=== PATIENT | female | born 1960 | race Caucasian/White ===

== ENCOUNTER 2022-02-03 12:12 | Inpatient (IN) | payer MEDICARE ==
[2022-02-03] VITALS (51 sets, daily range): BP systolic 58–154; BP diastolic 40–102
[~2022-02-03] VITALS: Ht 162.6 cm; Wt 117.6 kg
[~2022-02-03 12:12] MED LIST: AMITRIPTYLINE H25 MG; BENADRYL 25MG C25 MG PO; BLACK COHOSH40 MG PO; CALCIUM500 M3 PO; CYMBALTA60 MG PO; LYRICA50 MG PO; NEXIUM20 M1 PO; TIZANIDINE4 MG PO; VITAMIN D3400 UNI2 PO
--- NOTE | 2022-02-03 12:27 | NUR ---
Ant BOOKERRTED VIA EMS STRETCHER TO [place] [id number] FOR EVAQL OF DIAPHORESIS, CHEST PRESSURE AND WEAKNESS AFTER WORKING OUTSIDE THIS AM
[2022-02-03 12:39] LABS: HEMATOCRIT 39.6 % (37.0-47.0); HEMOGLOBIN 12.9 g/dl (12.0-16.0); IMMATURE GRANULOCYTES 1.8 % (0.0-5.0); MEAN CELL VOLUME 89.6 fL CALC (80.0-100.0); MEAN CORPUSCULAR HGB 29.2 pG CALC (26.0-32.0); MEAN CORPUSCULAR HGB CONC 32.6 g/dL CAL (32.0-36.0); NEUT# 6.09 thou/uL (2.00-7.15); RED BLOOD COUNT 4.42 mill/uL (4.20-5.60); RED CELL DISTRI WIDTH 13.6 % (11.5-15.5)
--- NOTE | 2022-02-03 12:44 | NUR ---
PATIENT STATED WHEN PRIOR TO ARRIVAL, SHE HAD CHEST TIGHTNESS 5/10. PATIENT STATED IT IS 2/10 AT THIS TIME. REPORTED 81/[address] BERNARD. NO NEW ORDERS AT THIS TIME
[2022-02-03 13:07] LABS: ALBUMIN 3.9 g/dL (3.2-5.0); ALKALINE PHOSPHATASE 86 u/l (38-126); ANION GAP 21 (6-22 (CALC)); BILIRUBIN, TOTAL 0.7 mg/dL (0.0-1.4); BUN 17 mg/dL (7-17); BUN/CREATININE RATIO 16 (12-20 (CALC)); CARBON DIOXIDE 15 mmol/l (22-30); CHLORIDE 103 mmol/l (95-108); CREATININE 1.1 mg/dL (0.5-1.0); GFR FOR AFR.AMER. > 60 ML/MIN (>=60 (CALC)); GFR OTHER RACES 51 ML/MIN (>=60 (CALC)); POTASSIUM 3.7 mmol/l (3.5-5.1); SGOT/AST 28 u/l (14-36); SODIUM 135 mmol/l (137-146); TOTAL PROTEIN 6.6 g/dL (6.3-8.2)
--- NOTE | 2022-02-03 13:11 | NUR ---
PERFORMING CENTRAL LINE.
--- NOTE | 2022-02-03 13:17 | NUR ---
AT BEDSIDE FOR CENTRAL LINE PLACEMENT, PATIENT HAD NAUSEA AND HYPOTENSION DURING PROCEDURE. PATIENT GIVEN TWO PUSHED OF PHENYLEPHINE 2L EACH WITH A CONCENTRAION OF 10 ML OF PHENYLEPHINE IN 100 ML OF NS. PUSHED GIVE AT 1307 AND 1314. PATIENT ALERT AND ORIENTED AT THIS TIME.
--- NOTE | 2022-02-03 13:24 | NUR ---
DR. BERNARD ORDERED 3 LITERS OF LACTATED RINGERS. DR. BERNARD STATED TO START LEVOPHED IF NEEDED. BP STABLE AT THIS TIME. LACTATED RINGERS STARTED.
[2022-02-03 13:41] LABS: URINE BILIRUBIN - DIPSTICK NEGATIVE (NEGATIVE); URINE COLOR YELLOW; URINE GLUCOSE - DIPSTICK 100 mg/dL (NEGATIVE); URINE KETONE NEGATIVE (NEGATIVE); URINE LEUK ESTERASE NEGATIVE (NEGATIVE); URINE PH 6.5 (4.5-8.0); URINE PROTEIN - DIPSTICK 100 mg/dL (NEG-TRACE); URINE UROBILINOGEN - DIPSTICK 0.2 E.U./dL (0.2)
[2022-02-03 13:44] LABS: URINE NITRITE - DIPSTICK NEGATIVE (Negative)
[2022-02-03 13:53] LABS: URINE BLOOD DIPSTICK NEGATIVE (NEGATIVE); URINE RBC 0-2 RBC/hpf (0-5); URINE WBC 0-2 WBC/hpf (0-5)
[2022-02-03 13:54] LABS: URINE EPITHELIAL CELLS RARE EPI/hpf (0-FEW); URINE HYALINE CAST FEW lpf (NONE-RARE)
--- NOTE | 2022-02-03 14:40 | NUR ---
PATIENT TRANSPORTED TO CT SCAN VIA STRETCHER BY OUTSOLE PARAFFINER
--- NOTE | 2022-02-03 17:05 | NUR ---
REASSESSED. NAD. VITALS STABLE. CALL LIGHT IN REACH.
--- NOTE | 2022-02-03 18:12 | NUR ---
PATIENT TRANSFERRED VIA STRETCHER AND ON MONITOR AND OXYGEN 2L/MIN VIA NC. VITALS STABLE. REPORT GIVEN TO IVETT HANSEN. MEDICATIONS BAGS OF LEVOPHED AND SANIYA GIVEN TO IVETT HANSEN JUST IN CASE THEY NEED TO START THEM. NOTIFIED IVETT HANSEN WE DID NOT START LEVOPHED OR SANIYA DUE TO PATIENT BP BEING STABLE AFTER THE LACTATED RINGERS.
[2022-02-03 18:25] LABS: HEMATOCRIT 33.5 % (37.0-47.0); HEMOGLOBIN 10.8 g/dl (12.0-16.0)
--- NOTE | 2022-02-03 19:51 | NUR ---
PATIENT RESTING IN BED AT THIS TIME. KAVITA IS ALERT AND ORIENTED X 3 AND STATES HER CURRENT PAIN LEVEL OUT OF 0-10 IS ONLY A "3" AND IS NOT REQUESTING ANY PIAN MEDICATIONS AT THIS TIME. PATIENT PRESENTS WIHT A PURWICK AT THIS TIME AND URINE IS YELLOW AND CLEAR. PATIENT PRESENTS WITH RIGHT TRIPLE LUMEN IJ. PATIENT ALSO HAS RIGHT AC#18 THAT IS SALINE RAMONA. PATIENT LUNG HILARIO ARE CLEAR IN ALL HILARIO AND BOWEL SOUNDS ARE PRESENT IN ALL FOUR QUADRANTS AT THIS TIME. KAVITA STATES THAT SHE HAD A BOWEL MOVEMENT THIS AM AND IT WAS "NORMAL" FOR HER. SIDERAILS ARE UP CALL LIGHT IS WITHIN REACH. CARDICA MONITOR READING SINUS TACH AT 104. WILL CONTINUE TO MONITOR.
--- NOTE | 2022-02-03 22:00 | NUR ---
DR. MONAE IN TO SEE PATIENT AT THIS TIME. DIRECTOR ENERGY READING SINUS TACH AT 103 BP AT THIS TIME IS 114/79 SPO2 IS 90% PATIENT HAS CPAP MASK IN PLACE. DENIES ANY NEEDS SIDERAILS ARE UP CALL LIGHT IS WITHIN REACH.
[2022-02-04] VITALS (10 sets, daily range): BP systolic 104–131; BP diastolic 66–86
--- NOTE | 2022-02-04 00:02 | NUR ---
PATIENT LAYING IN BED AT THIS TIME. PATIENT STATES HER PAIN IN LOWER BACK IS A 4-5 AND PATIENT WAS GIVEN LYRICA 150MG AT THIS TIME PER SCHEDULE MED. PATIENT REMAINS IN BED WIHT CPAP ON AND SPO2 IS CURRENTLY 91%. PATIENT BP IS CURRENTLY 122/79 PATIENT RIGHT IJ REMAINS INTACT AND FLUSHES WIHTOUT ISSUE AND BLOOD RETURNED IN ALL LINES. LABS DRAWN AT THIS TIME FOR H&H AND SENT TO LAB. SIDERAILS ARE UP CALL LIGHT IS WITHIN REACH AND PURWICK EMPTIED AT THIS TIME AND 550 CC CALCULATED. WILL CONTINUE TO MONITOR.
[2022-02-04 00:09] LABS: HEMATOCRIT 30.1 % (37.0-47.0); HEMOGLOBIN 9.9 g/dl (12.0-16.0)
--- NOTE | 2022-02-04 02:03 | NUR ---
PATIENT IS RESTING IN BED AT THIS TIME. MAIL WEIGHER READING SINUS TACH AND HR OF 103, BP IS CURRENTLY 106/70 CPAP REMAINS ON AND SPO2 IS CURRENTLY 90%. SIDERAILS ARE UP CALL LIGHT IS WITHIN REACH.
--- NOTE | 2022-02-04 03:57 | NUR ---
PATIENT RESEING IN BED AT THIS TIME WITH EYES CLOSED. RESPIRATIONS ARE EASY AND UNLABORED AT THIS TIME. PATIENT IS ON CPAP AT THIS TIME. SPO2 IS CURRENTLY 90% AND BP AT THIS TIME IS 106/70. PATIENTS SIDERAILS ARE UP X 2 AND CALL LIGHT IS WIHTIN REACH.
--- NOTE | 2022-02-04 08:00 | NUR ---
PT SEEN AWAKE, ALERT, ORIENTED X 3. LUNGS CLEAR, 2 LPM NC. ABDOMEN REMAINS TENDER, SLIGHTLY MORE THAN YESTERDAY. DR MONAE IN TO SEE PT. TO RECHECK H&H AT NOON.
[2022-02-04 10:17] LABS: HEMOGLOBIN 9.4 g/dl (12.0-16.0)
--- NOTE | 2022-02-04 11:06 | NUR ---
PT SEEN AT REST IN THE BED, NO DISTRESS.
[2022-02-04 12:23] LABS: HEMATOCRIT 27.2 % (37.0-47.0); HEMOGLOBIN 8.8 g/dl (12.0-16.0)
--- NOTE | 2022-02-04 14:34 | NUR ---
PT OOB INTO CHAIR AT THIS TIME. SHE WAS ABLE TO WASH UP THERE. LINENS CHANGED. NO REPORT OF PAIN.
--- NOTE | 2022-02-04 16:59 | NUR ---
PT CONTINUES BEFORE, HR STILL ST IN THE 110-120 RANGE. NO COMPLAINT OF ABDOMINAL PAIN.
[2022-02-04 18:13] LABS: HEMOGLOBIN 8.7 g/dl (12.0-16.0)
--- NOTE | 2022-02-04 19:50 | NUR ---
PATIENT LAYING IN BED AT THIS TIME ALERT AND ORIENTED X 3. TELEVISION AND RADIO REPAIRER DONE AT THIS TIME. PATIENT DENEIS ANY MAJOR PAIN BUT DOES STATE SHE HAS AN ONGOING PIAN IN LOWER BACK THAT IS A "2" OUT OF THE 0-10 PAIN SCALE AT THIS TIME AND IS NOT REQUESTING ANY PAIN MANAGEMENT. PATIENT LUNG HILARIO ARE CLEAR IN ALL FOUR LUNG HILARIO BUT KAVITA IS CURRENTLY ON 2 LITERS OF 02 FOR STATED SHORTNESS OF BREATH AND SPO2 IS CURRENTLY 92%. GENETICS NURSE SHOWING SINUS TACHY AND HR OF 114 AND BP IS CURRENTLY 131/85. TEMP AT THIS TIME IS 98.5. PATIENT PRESENTS WITHOUT ANY EDEMA AND BOWEL SOUNDS ARE PRESENT IN ALL FOUR QUADS. PATIENT VOIDED 450 MLS OF CLEAR YELLOW URINE AND WAS ASSISTED BACK TO BED. SIDERAILS ARE UP CALL LIGHT IS WITHIN REACH WILL CONTINUE TO MONITOR.
--- NOTE | 2022-02-04 21:54 | NUR ---
PATIENT RESTING AT THIS TIME. SIDERAILS ARE UP X 2 CALL LIGHT IS WITHIN REACH. COST AND SALES RECORD SUPERVISOR READING ST AT HR OF 115 WILL CONTINUE TO MONITOR.
--- NOTE | 2022-02-04 23:47 | NUR ---
PATIENT LAYING IN BED AT THIS TIME WITH EYES CLOSED AND 02 ON 2 LITERS AT THIS TME AND SPO2 IS CURRENTLY 94%. RESPIRATIONS ARE EASY AND UNLABORED. BP IS CURRENTLY 131/81 SIDERAILS ARE UP CALL LIGHT IS WITHIN REACH. PATIENT NOT WEARING CPAP AT THIS TIME. WHILE WEARING CPAP SPO2 WAS SHOWING BELOW 89% PATIENT PLACED BACK ON 2L AND SPO2 MAINTAINS ABOVE 90%.
[2022-02-05] VITALS (12 sets, daily range): BP systolic 113–133; BP diastolic 66–85
--- NOTE | 2022-02-05 02:15 | NUR ---
PATIENT RESTING IN BED AT THIS TIME CHANEL ANY NEEDS SIDERAILS ARE UP CALL LIGHT WITHIN REACH.
--- NOTE | 2022-02-05 04:05 | NUR ---
PATIENT RESTING IN BED O2 REMAINS ON AT 2L AND SPO2 IS CURRENTLY 92 % BP IS 128/85 AND TELEVISION SPECIALIST READING ST AT HR OF 108. SIDERAILS ARE UP TRIPLE LUMEN LINES FLUSHED SIDERAILS ARE UP CALL LIGHT IS WITHIN REACH.
[2022-02-05 04:22] LABS: HEMATOCRIT 24.7 % (37.0-47.0); MEAN CELL VOLUME 92.2 fL CALC (80.0-100.0); MEAN CORPUSCULAR HGB 29.9 pG CALC (26.0-32.0); MEAN CORPUSCULAR HGB CONC 32.4 g/dL CAL (32.0-36.0); NEUT# 4.88 thou/uL (2.00-7.15); RED BLOOD COUNT 2.68 mill/uL (4.20-5.60); RED CELL DISTRI WIDTH 14.1 % (11.5-15.5)
[2022-02-05 04:31] LABS: BUN 10 mg/dL (7-17); BUN/CREATININE RATIO 12 (12-20 (CALC)); CHLORIDE 104 mmol/l (95-108); CREATININE 0.8 mg/dL (0.5-1.0); GFR FOR AFR.AMER. > 60 ML/MIN (>=60 (CALC)); GFR OTHER RACES > 60 ML/MIN (>=60 (CALC)); POTASSIUM 4.1 mmol/l (3.5-5.1); SODIUM 137 mmol/l (137-146)
[2022-02-05 04:36] LABS: ANION GAP 9 (6-22 (CALC)); CARBON DIOXIDE 28 mmol/l (22-30)
--- NOTE | 2022-02-05 06:00 | NUR ---
PATIENT REMAINS RESTING IN BED AT THIS TIME MONITOR READING ST AND HR IS 107 SIDERAILD ARE UP CALL LIGHT WITHIN REACH.
--- NOTE | 2022-02-05 11:45 | NUR ---
RECIEVED REPORT FROM TYRONE ROOT.
--- NOTE | 2022-02-05 13:03 | NUR ---
JONG MONAE. NEW ORDERS WILL BE PLACED.
--- NOTE | 2022-02-05 16:00 | NUR ---
PATIENT RESTING IN BED.
--- NOTE | 2022-02-05 18:00 | NUR ---
PATIENT EATING DINNER.
[2022-02-05 18:02] LABS: HEMATOCRIT 25.5 % (37.0-47.0); HEMOGLOBIN 8.3 g/dl (12.0-16.0)
--- NOTE | 2022-02-05 19:34 | NUR ---
PATIENT RESTING IN BED AT THIS TIME. DENIES ANY PAIN ON NEEDS AT THIS TIME CRABBING MACHINE OPERATOR DONE SEE INTERVENTIONS. PATIENT REMAINS ON 02 AT 2L AND HR IS 117 SINUS TACK LUNG HILARIO ARE CLEAR. SIDERAILS ARE UP CALL LIGHT IS WITHIN REACH. KAVITA HARMONY IS FLUSHING WITHOUT RESISTANCE AT THIS TIME. WILL CONTINUE TO MONITOR.
--- NOTE | 2022-02-05 22:00 | NUR ---
PATIENT RESTING COMFORATABLE NO COMPLAINTS HEART MONITOR READING ST AND HR OF 120 SIDERAILS ARE UP CALL LIGHT WITHIN REACH 02 ON 2 LITERS AND SPO2 IS CURRENTLY 90%.
--- NOTE | 2022-02-05 23:47 | NUR ---
PATIENT RESTING IN BED AT THIS TIME JAVA DEVELOPER READING SINUS THACKY AT 117 BP IS CURRENTLY 115/67 O2 REMAINS ON AND SPO2 IS 90% SIDERAILS ARE UP CALL LIGHT NEAR.
[2022-02-06] VITALS (8 sets, daily range): BP systolic 110–149; BP diastolic 59–84
--- NOTE | 2022-02-06 01:51 | NUR ---
PATIENT IN BED RESTING WIHT EYES CLOSED RESPIRATION EASY AND UNLABORED AT THIS TIME SPO2 IS 94% ON 2L OF O2 VIA NASAL CANULA. SIDERAILD ARE UP CALL LIGHT IS WITHIN REACH. CONCERT PROMOTER SHOWS ST AND HR OF 114 WILL CONTINUE TO MONITOR.
--- NOTE | 2022-02-06 04:01 | NUR ---
PATIENT RESTING IN BED AT THIS TIME. CRITICAL CARE UNIT MANAGER SHOWING HR OF 111 ST. PATIENT DENIES ANY NEEDS. PATIENT REMAINS ON 3L OF 02 AT THIS TIME AND SPO2 IS 96% SIDERAILS ARE UP CALL LIGHT IS WITHIN REACH.
[2022-02-06 05:15] LABS: HEMATOCRIT 22.6 % (37.0-47.0); HEMOGLOBIN 7.2 g/dl (12.0-16.0)
--- NOTE | 2022-02-06 05:56 | NUR ---
PATIENT RESTING IN BED AT THIS TIME. PRICK STITCHER IS READING SINUS TACHY AT 113. SIDERAILS ARE UP CALL LIGHT IS WITHIN REACH PATIENT RESTING AT THIS TIME.
--- NOTE | 2022-02-06 06:13 | NUR ---
DR. MONAE NOTIFED OF PATINETS HBG OF 7.2 AND HEMATOCRIT IS 22.6.
[2022-02-06 08:11] LABS: HEMATOCRIT 24.5 % (37.0-47.0); HEMOGLOBIN 7.8 g/dl (12.0-16.0); MEAN CELL VOLUME 93.5 fL CALC (80.0-100.0); MEAN CORPUSCULAR HGB 29.8 pG CALC (26.0-32.0); MEAN CORPUSCULAR HGB CONC 31.8 g/dL CAL (32.0-36.0); RED BLOOD COUNT 2.62 mill/uL (4.20-5.60); RED CELL DISTRI WIDTH 14.2 % (11.5-15.5)
--- NOTE | 2022-02-06 08:56 | NUR ---
R'CD REPORT FROM IVETT ESTRADA. PT IS A&OX4. PT IS IN NAD. PT HAS 2LNC IN PLACE. PT VSS. PT FOLLOWS COMMANDS AND HAS CALL LIGHT NEARBY. PT IS PLACED ON FALL PRECAUTIONS FOR SAFETY. PT HAS BEEN INFORMED OF POC. WILL CONTINUE TO MONITOR. SPOKE TO PHYS, STAT CT PLACED.
--- NOTE | 2022-02-06 09:15 | NUR ---
PT WAS TAKEN DOWN TO CT VIA W/C.
--- NOTE | 2022-02-06 09:30 | NUR ---
PT RETURNED AND IN BED. PT HAS NO C/O AT THIS TIME. PT HAS CALL LIGHT NEAR.
--- NOTE | 2022-02-06 12:00 | NUR ---
PT HAS NO CHANGE TO ASSESSMENT. PT HAS NO COMPLAINTS AT THIS TIME. PT HAS CALL LIGHT NEAR.
--- NOTE | 2022-02-06 12:54 | NUR ---
CALL WAS MADE TO PHYS., ORDERS R'CD TO REMOVE FROM TELE MONITORING AND OK TO TRANSFER TO MED/SURG WHEN A BED IS AVAILABLE. PT HAS LUNCH TRAY AT BEDSIDE.
--- NOTE | 2022-02-06 16:51 | NUR ---
PT IS SITTING UP IN BED AWAKE, PT HAS NO CHANGE TO ASSESSMENT. PT HAS CALL LIGT NEAR AND WILL CALL IF IN NEED.
[2022-02-06 18:01] LABS: HEMATOCRIT 26.4 % (37.0-47.0); HEMOGLOBIN 8.4 g/dl (12.0-16.0)
--- NOTE | 2022-02-06 18:17 | NUR ---
PT IS SITTING UP OOB IN CHAIR WITH DINNER TRAY, PT HAS CALL LIGHT NEAR AND HAS NO CHANGE TO ASSESSMENT.
--- NOTE | 2022-02-06 19:00 | NUR ---
PATIENT SITTING UP IN CHAIR AT THIS TIME ALERT AND ORIENTED AT X 3. VITAL SIGNS TAKEN SEE INTERVENTIONS. PATIENT DENIES ANY PAIN AT THIS TIME. RIGHT AC IV REMOVED DUE TO BEING DISLODGED. SHELLFISH MANAGER HAS BEEN DC'D AT THIS TIME. LUNG HILARIO ARE CLEAR PATIENT HAD MODERATE BOWEL MOVEMENT BROWN IN COLOR. PATIENT STATED "I FEEL SO MUCH BETTER AND HOPE TO GO HOME IN THE MORNING". SIDERAILS ARE UP CALL LIGHT IS WITHIN REACH.
--- NOTE | 2022-02-06 21:59 | NUR ---
PATIENT RESTING IN BED AT THIS TIME. DENIES ANY NEEDS CURRENTLY SIDERAILS ARE UP X 3 CALL LIGHT WITHIN REACH.
--- NOTE | 2022-02-06 23:53 | NUR ---
PATIENT RESTING IN BED AT THIS TIME. VS TAKEN SEE INTERVENTIONS. RESPIERATIONS ARE EASY AND UNLABORED AND SPO2 IS 93% AT THIS TIME. SIDERAILS ARE UP X 2 CALL LIGHT IS WITHIN REACH.
--- NOTE | 2022-02-07 02:00 | NUR ---
PATIENT RESTING WITH EYES CLOSED RESPIRATIONS EASY AND UNLABORED SIDERAILS UP CALL LIGHT WITHIN REACH. WILL CONTINUE TO MONITOR.
--- NOTE | 2022-02-07 04:09 | NUR ---
PATIENT RESTING IN BED WITH EYES CLOSED AT THIS TIME. RESPIRATIONS EASY AND UNLABLORED. SIDERAILS ARE UP CALL LIGHT WITHIN REACH.
--- NOTE | 2022-02-07 05:45 | NUR ---
PATIENT REMAINS IN BED WEARING CPAP AT THIS TIME SIDERAILS ARE UP X 2 CALL LIGHT IS WITHIN REACH. WILL CONTINUE TO MONITOR.
== END 2022-02-07 09:15 | disposition home or self-care (01) | DRG 815 ==
LOC: ED 12:12 → ED-I 16:20 → ED 16:38 → ICU 16:39
PROVIDERS: Family Medicine; ADMIT Surgery; ATTEND Surgery
PROC: 05HM33Z Insertion of Infusion Device into Right Internal Jugular Vein, Percutaneous Approach (ICD-10-PCS; principal; 2022-02-03)
DX: S36.039A Unspecified laceration of spleen, initial encounter (principal); E87.20 Acidosis, unspecified; I95.9 Hypotension, unspecified; D64.9 Anemia, unspecified; F32.A Depression, unspecified; G60.0 Hereditary motor and sensory neuropathy; K21.9 Gastro-esophageal reflux disease without esophagitis; X58.XXXA Exposure to other specified factors, initial encounter; Z53.1 Procedure and treatment not carried out because of patient's decision for reasons of belief and group pressure; Z85.528 Personal history of other malignant neoplasm of kidney; Z20.822 Contact with and (suspected) exposure to COVID-19
CPT/HCPCS: Q9967; S0164

== ENCOUNTER 2022-02-11 13:41 | Emergency (ER) | payer MEDICARE ==
[2022-02-11] VITALS (18 sets, daily range): BP systolic 109–155; BP diastolic 57–96
[~2022-02-11] VITALS: Ht 162.6 cm; Wt 113.0 kg
[2022-02-11] MEDS ORDERED: LYRICA50 MG PO (14:21)
[2022-02-11 14:28] LABS: HEMATOCRIT 27.5 % (37.0-47.0); HEMOGLOBIN 8.7 g/dl (12.0-16.0); IMMATURE GRANULOCYTES 4.2 % (0.0-5.0); MEAN CELL VOLUME 95.5 fL CALC (80.0-100.0); MEAN CORPUSCULAR HGB 30.2 pG CALC (26.0-32.0); MEAN CORPUSCULAR HGB CONC 31.6 g/dL CAL (32.0-36.0); NEUT# 3.84 thou/uL (2.00-7.15); RED BLOOD COUNT 2.88 mill/uL (4.20-5.60); RED CELL DISTRI WIDTH 16.1 % (11.5-15.5)
[2022-02-11 14:38] LABS: ALBUMIN 3.7 g/dL (3.2-5.0); ALKALINE PHOSPHATASE 79 u/l (38-126); ANION GAP 13 (6-22 (CALC)); BUN 13 mg/dL (7-17); BUN/CREATININE RATIO 15 (12-20 (CALC)); CARBON DIOXIDE 26 mmol/l (22-30); CHLORIDE 105 mmol/l (95-108); CREATININE 0.8 mg/dL (0.5-1.0); GFR FOR AFR.AMER. > 60 ML/MIN (>=60 (CALC)); GFR OTHER RACES > 60 ML/MIN (>=60 (CALC)); LIPASE 87 u/l (23-300); POTASSIUM 4.1 mmol/l (3.5-5.1); SGOT/AST 33 u/l (14-36); SODIUM 140 mmol/l (137-146); TOTAL PROTEIN 6.3 g/dL (6.3-8.2)
== END 2022-02-11 18:40 | disposition home or self-care (01) ==
LOC: ED 13:41
PROVIDERS: Family Medicine
DX: R07.9 Chest pain, unspecified (principal); G60.0 Hereditary motor and sensory neuropathy; F32.A Depression, unspecified
CPT/HCPCS: Q9967

== ENCOUNTER → 2024-01-30 | Day surgery (SDC) | payer MEDICARE ==
[~2024-01-30] MED LIST changes: +CALCIUM 1200 PO; +ELAVIL25 M1 PO; +FAMOTIDINE 10MG/ML 2ML SDV IV ONE; +INDERAL10 M1 PO; +LACTATED RINGER'S 1,000 ML IV ONE; +LYRICA150 M1 PO; +TRAMADOL HCL50 MG PO; +TRAMADOL HYDROC50 M1 PO; +TYLENOL 8 HOUR650 MG; +VITAMIN C100 M1 PO; +VITAMIN D-32000 UNI1; +WEGOVY; +ZANAFLEX4 M2 PO; +ZETIA10 MG PO
== END | disposition home or self-care (01) ==
LOC: ENDO 07:07 → ORM 09:45
PROVIDERS: ATTEND Surgery
DX: Z12.11 Encounter for screening for malignant neoplasm of colon (principal); K59.03 Drug induced constipation; T50.905A Adverse effect of unspecified drugs, medicaments and biological substances, initial encounter; Z53.09 Procedure and treatment not carried out because of other contraindication

== ENCOUNTER → 2024-01-31 | Day surgery (SDC) | payer MEDICARE ==
[~2024-01-31] VITALS: Ht 162.6 cm; Wt 97.5 kg
[~2024-01-31] MED LIST changes: +GLYCOPYRROLATE 0.2 MG/ML IV ONE; +LIDOCAINE HCL 2% 2ML SDV IV ONE; +PROPOFOL 200 MG/20 ML VIAL IV ONE
[2024-01-31 12:32] VITALS: BP 154/98
== END | disposition home or self-care (01) ==
LOC: ORM 10:24
PROVIDERS: ATTEND Surgery
PROC: 0DBK8ZX Excision of Ascending Colon, Via Natural or Artificial Opening Endoscopic, Diagnostic (ICD-10-PCS; principal; 2024-01-31)
DX: Z12.11 Encounter for screening for malignant neoplasm of colon (principal); D12.2 Benign neoplasm of ascending colon; K64.8 Other hemorrhoids; K59.03 Drug induced constipation; T50.905A Adverse effect of unspecified drugs, medicaments and biological substances, initial encounter